=== PATIENT | female | born 1995 | race Caucasian/White ===

== ENCOUNTER 2017-01-20 09:37 | Emergency (ER) | payer MEDICAID ==
[~2017-01-20] VITALS: Ht 167.6 cm; Wt 72.6 kg
[~2017-01-20 09:37] MED LIST: AMOXICILLIN 50500 MG PO; AMOXICILLIN500 M2 PO; BACTRIM DS 8001 TAB PO; DEPO-PROVER150 MG/M1 IM; KAPIDEX30 MG PO; KEFLEX 500MG.500 MG PO; LIDOCAINE VISC100 M1 TP; LORATADINE 10MG10 M1 PO; MOTRIN 400MG.400 MG PO; MOTRIN 600MG.600 MG PO; MUCINEX600 MG PO; MULTI-VITAMIN1 EACH PO; NOMEDS XX; NORFLEX100 MG PO; PREDNISONE 20MG20 MG PO; PRILOSEC40 MG PO
[2017-01-20 09:55] LABS: URINE BILIRUBIN - DIPSTICK NEGATIVE (NEG)
[2017-01-20 09:56] LABS: URINE BLOOD NEGATIVE (NEG)
[2017-01-20] MEDS ORDERED: AUGMENTIN 875-1 EACH PO (10:13)
[2017-01-20] MEDS ORDERED: FLONASE 50 MCG16 GM (10:13)
[2017-01-20] MEDS ORDERED: MEDROL 4MG. DOSE4 MG PO (10:13)
[2017-01-20 10:14] VITALS: BP 142/77
--- NOTE | 2017-01-20 10:14 | [facility]gent Treatment Center Report ---
History of Present Issue Date/Time Seen by Provider 01/20/17 1004 Visit Reason Pt arrived:Walked Presenting Problem:PT STATES SINUS PRESSURE/PAIN, RUNNY NOSE X3 DAYS. ALSO STATES BURNING WITH URINATION X3 DAYS Location if Accident: Onset of symptoms date/time:/ or onset unknown for:MEDICAL HX UNKNOWN Have you (or family members/close friends) recently traveled outside the [place]? N If Yes, where/when: Have you had exposure to infectious disease within the past month? TB? Other? Specify: Patient state that she has been having pain and burning with urination States that she is also having some sinus pain and pressure behind her eyes states that her sinus drainage has changed over the last week from yellowish green to a yellowish brown/green State that it is thick and has continued to get worse ALLERGIES Coded Allergies: Sulfa (Sulfonamide Antibiotics) (Severe, FACE SWELL 08/05/15) Home Medications Reported Medications IBUPROFEN (Motrin 600MG) 600 MG PO Q6HP PRN PAIN History Medical History General CAD? No Angina: No [place]: No Hypertension? No Hyperlipidemia? No CHF? No DVT? No PE? No COPD? No Asthma? No Anemia? No GERD? No Gastric ulcers? No GI Bleed? No Hernia? No Thyroid Problems? No Hypothyroidism? No CVA? No Seizures? No Diabetes? No Insulin Dependent: No Insulin Pump: No Home FSBS? No Renal Insuffiency? No UTI? Yes Stones? No BPH? No GB Disease: No Nephritic Syndrome? No Asplenia? No Hepatitis? No Sickle Cell Disease? No Arthritis? No Migraines? No Cataracts? No Glaucoma? No MRSA? No HIV? No TB? No Anxiety? No Depression? No Cancer? No More? 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 Genitourinary dysuria, frequency, pain. Physical Exam Vital Signs Vital Signs Date Time Temp Pulse Resp B/P Pulse O2 O2 Flow FiO2 Ox Delivery Rate 01/20 0950 98.2 101 18 142/77 100 General Appearance normal appearance, WD/WN, no apparent distress Ear, Nose, Throat sinus pain/drainage, nasal congestion, Drainage noted in back of throat, tenderness noted frontal sinsues Respiratory Status Yes: trachea midline, chest symmetrical, non tender chest. No: respiratory distress. Lung Sounds bilateral: normal breath sounds, lungs clear. 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 No Results/Orders Laboratory Tests 01/20/17 0953: Urine Color DARK YELLOW, Urine Appearance Clear, Urine pH 5.5, Ur Specific Hydro >= 1.030, Urine Protein NEGATIVE, Urine Ketones NEGATIVE, Urine Blood NEGATIVE, Urine Nitrate NEGATIVE, Urine Bilirubin NEGATIVE, Urine Urobilinogen 1.0, Ur Leukocyte Esterase NEGATIVE, Urine Glucose NEGATIVE Orders Procedure Date/time Status [facility] URINE DIPSTICK 01/20 0953 Complete Departure Departure Time of Disposition 1011 Disposition DC Home or Self Care(routine) Clinical Impression Primary Impression: Sinusitis Qualifiers: Sinusitis location: frontal Chronicity: unspecified Qualified Code: J32.1 - Chronic frontal sinusitis Condition STABLE Patient Instructions DI for Sinusitis, Sinus Headache, Sinusitis Additional Instructions Start antibiotic.. It may take 2-3 days to notice much improvement so be sure to use conservative measures as discussed for symptoms Ok to continue Sudafed Flonase 2 spray in each nostril daily to help with nasal congestion, sinus an ear pressure/inflammation Lots of Fluids Sleep elevated Humidifer/vaporizer Discharge Counseling Counseled pt/family regarding diagnosis, medications/RX, home care, follow up needs Prescriptions Current Visit Scripts Amoxicillin/Potassium Clav (Augmentin 875-125 Tablet) 1 EACH PO BID #14 TAB Fluticasone Propionate (Flonase 50 Mcg Nasal [place]) 2 SPRAY NA DAILY #1 BOT Methylprednisolone (Medrol Dose Lonny) 4 MG PO UD #1 LONNY TAKE DIRECTED ON PACKAGING at 1013
--- NOTE | 2017-01-20 10:14 | Urgent Treatment Center Report ---
History of Present Issue Date/Time Seen by Provider 01/20/17 1004 Visit Reason Pt arrived:Walked Presenting Problem:PT STATES SINUS PRESSURE/PAIN, RUNNY NOSE X3 DAYS. ALSO STATES BURNING WITH URINATION X3 DAYS Location if Accident: Onset of symptoms date/time:/ or onset unknown for:MEDICAL HX UNKNOWN Have you (or family members/close friends) recently traveled outside the [place]? N If Yes, where/when: Have you had exposure to infectious disease within the past month? TB? Other? Specify: Patient state that she has been having pain and burning with urination States that she is also having some sinus pain and pressure behind her eyes states that her sinus drainage has changed over the last week from yellowish green to a yellowish brown/green State that it is thick and has continued to get worse ALLERGIES Coded Allergies: Sulfa (Sulfonamide Antibiotics) (Severe, FACE SWELL 08/05/15) Home Medications Reported Medications IBUPROFEN (Motrin 600MG) 600 MG PO Q6HP PRN PAIN History Medical History General CAD? No Angina: No [place]: No Hypertension? No Hyperlipidemia? No CHF? No DVT? No PE? No COPD? No Asthma? No Anemia? No GERD? No Gastric ulcers? No GI Bleed? No Hernia? No Thyroid Problems? No Hypothyroidism? No CVA? No Seizures? No Diabetes? No Insulin Dependent: No Insulin Pump: No Home FSBS? No Renal Insuffiency? No UTI? Yes Stones? No BPH? No GB Disease: No Nephritic Syndrome? No Asplenia? No Hepatitis? No Sickle Cell Disease? No Arthritis? No Migraines? No Cataracts? No Glaucoma? No MRSA? No HIV? No TB? No Anxiety? No Depression? No Cancer? No More? 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 Genitourinary dysuria, frequency, pain. Physical Exam Vital Signs Vital Signs Date Time Temp Pulse Resp B/P Pulse O2 O2 Flow FiO2 Ox Delivery Rate 01/20 0950 98.2 101 18 142/77 100 General Appearance normal appearance, WD/WN, no apparent distress Ear, Nose, Throat sinus pain/drainage, nasal congestion, Drainage noted in back of throat, tenderness noted frontal sinsues Respiratory Status Yes: trachea midline, chest symmetrical, non tender chest. No: respiratory distress. Lung Sounds bilateral: normal breath sounds, lungs clear. 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 No Results/Orders Laboratory Tests 01/20/17 0953: Urine Color DARK YELLOW, Urine Appearance Clear, Urine pH 5.5, Ur Specific [place] >= 1.030, Urine Protein NEGATIVE, Urine Ketones NEGATIVE, Urine Blood NEGATIVE, Urine Nitrate NEGATIVE, Urine Bilirubin NEGATIVE, Urine Urobilinogen 1.0, Ur Leukocyte Esterase NEGATIVE, Urine Glucose NEGATIVE Orders Procedure Date/time Status [facility] URINE DIPSTICK 01/20 0953 Complete Departure Departure Time of Disposition 1011 Disposition [place] Home or Self Care(routine) Clinical Impression Primary Impression: Sinusitis Qualifiers: Sinusitis location: frontal Chronicity: unspecified Qualified Code: J32.1 - Chronic frontal sinusitis Condition STABLE Patient Instructions DI for Sinusitis, Sinus Headache, Sinusitis Additional Instructions Start antibiotic.. It may take 2-3 days to notice much improvement so be sure to use conservative measures as discussed for symptoms Ok to continue Sudafed Flonase 2 spray in each nostril daily to help with nasal congestion, sinus an ear pressure/inflammation Lots of Fluids Sleep elevated Humidifer/vaporizer Discharge Counseling Counseled pt/family regarding diagnosis, medications/RX, home care, follow up needs Prescriptions Current Visit Scripts Amoxicillin/Potassium Clav (Augmentin 875-125 Tablet) 1 EACH PO BID #14 TAB Fluticasone Propionate (Flonase 50 Mcg Nasal [place]) 2 SPRAY NA DAILY #1 BOT Methylprednisolone (Medrol Dose Lonny) 4 MG PO UD #1 LONNY TAKE DIRECTED ON PACKAGING at 1013
== END 2017-01-20 10:18 | disposition home or self-care (01) ==
LOC: UTC 09:37
PROVIDERS: Nurse Practitioner
DX: J32.1 Chronic frontal sinusitis (principal)

== ENCOUNTER → 2017-02-09 | Outpatient (CLI) | payer MEDICAID ==
[~2017-02-09] MED LIST changes: +AUGMENTIN 875-1 EACH PO; +FLONASE 50 MCG16 GM; +MEDROL 4MG. DOSE4 MG PO
== END ==
LOC: LAB 14:47
DX: Z32.00 Encounter for pregnancy test, result unknown (principal)